=== PATIENT | female | born 1960 | race Caucasian/White ===

== ENCOUNTER 2016-12-24 11:45 | Emergency (ER) | payer OTHER ==
[~2016-12-24] VITALS: Wt 80.0 kg
[~2016-12-24 11:45] MED LIST: DARU800T PO; NORV100 PO; TRUV PO
[2016-12-24] MEDS ORDERED: ALBUTEROL 0.5% (NEB) 2.5 MG/0.5 ML AMP INH STA (13:56)
[2016-12-24] MEDS ORDERED: IPRATROPIUM (NEB) 0.5 MG/2.5 ML AMP INH STA (13:56)
[2016-12-24] MEDS ORDERED: predniSONE 20 MG TAB PO STA (13:56)
--- NOTE | 2016-12-24 14:05 | ERD ---
ER Documentation Chief Complaint Date/Time DATE: 12/24/16 TIME: 14:03 Chief Complaint COUGH AND CONGESTION FOR THE PAST FEW DAYS. NO FEVERS. HPI This a 56-year-old female who presents the emergency department today complaining of sore throat, left earache, cough and congestion for the past 3 days. Patient states she has a history of HIV and asthma. States she is her asthma medications last night but it is not helping her. Denies any fevers or chills, nausea vomiting or diarrhea. ROS All systems reviewed and are negative except as per history of present illness. Medications Home Meds Active Scripts Guaifenesin-Dextromethorphan* (Robitussin* DM) 100MG/10MG/5ML Syrup, 10 ML PO Q4H Y for COUGH for 5 Days, ML Prov:PAYAM VALDEZ PA-C 12/24/16 Fluticasone Propionate (Flonase Allergy Relief) 9.9 Ml Willis.susp, 1 SPRAY NASAL DAILY, #1 BOTTLE TO EACH NOSTRIL Prov:PAYAM VALDEZ PA-C 12/24/16 Cetirizine Hcl* (Zyrtec*) 10 Mg Capsule, 10 MG PO DAILY, #14 TAB.CHEW Prov:PAYAM VALDEZ PA-C 12/24/16 Azithromycin* (Zithromax*) 250 Mg Tablet, 250 MG PO .ZPACK DIRECTED, #6 TAB TAKE 500 MG (2 TABS) THE FIRST DAY THEN 250 MG (1 TAB) DAYS 2-5 Prov:PAYAM VALDEZ PA-C 12/24/16 Reported Medications Emtricitabine-Tenofovir* (Truvada*) 1 Tab Tab, 1 TAB PO DAILY, TAB 12/03/13 Ritonavir* (Norvir*) 100 Mg Capsule, 100 MG PO DAILY 12/03/13 Darunavir* (Prezista*) 800 Mg Tablet, 800 MG PO DAILY 12/03/13 Allergies Allergies: Coded Allergies: Penicillins (Verified Allergy, Unknown, 12/02/13) PMhx/Soc History of Surgery: Yes (C section, appendectomy) Anesthesia Reaction: No Hx Neurological Disorder: No Hx Respiratory Disorders: No Hx Cardiac Disorders: No Hx Psychiatric Problems: No Hx Miscellaneous Medical Probl: Yes (HIV, hep C,chronic ear infection,seizure, CTS) Hx Alcohol Use: No Hx Substance Use: No Hx Tobacco Use: No Smoking Status: Never smoker Physical Exam Vitals Vital Signs Date Time Temp Pulse Resp B/P Pulse Ox O2 Delivery O2 Flow Rate FiO2 12/24/16 14:17 94 21 12/24/16 11:48 98.6 95 20 140/84 97 Physical Exam Const: No acute distress Head: Atraumatic Eyes: Normal Conjunctiva ENT: Ears TMs normal. Nose mild drainage. Throat no erythema no exudate. Neck: Full range of motion..~ No meningismus. Resp: Diffuse rhonchi bilaterally in all lung pickard Cardio: Regular rate and rhythm, no murmurs Abd: Soft, non tender, non distended. Normal bowel sounds Skin: No petechiae or rashes Back: No midline or flank tenderness Ext: No cyanosis, or edema Neur: Awake and alert Psych: Normal Mood and Affect Results 24 hrs Current Medications Medications (Trade) Dose Ordered Sig/Tori Route PRN Reason Start Time Stop Time Status Last Admin Dose Admin Albuterol (Proventil 0.5% (Neb)) 5 mg ONCE STAT INH 12/24/16 13:56 12/24/16 14:01 DC 12/24/16 14:08 Ipratropium [place] (Atrovent 0.02% (Neb)) 1 mg ONCE STAT INH 12/24/16 13:56 12/24/16 14:01 DC 12/24/16 14:07 Prednisone (Prednisone) 60 mg ONCE STAT PO 12/24/16 13:56 12/24/16 14:01 DC 12/24/16 14:03 DIAGNOSTIC IMAGING REPORT Patient: JOSEFINA MOORE : 1960 Age: 56 Sex: F MR #: [id number] DOS: 12/24/16 1356 Ordering MD: PAYAM VALDEZ PA-C Location: [facility] Room/Bed: PROCEDURE: Chest x-ray CLINICAL INDICATION: Asthma. TECHNIQUE: One-view frontal. COMPARISON: 12/02/2013 FINDINGS: The cardiac silhouette is normal. No infiltrates are noted. No hilar abnormalities are identified. No pneumothorax or pleural effusions are visualized. Mild aortic calcification/atherosclerosis is noted. IMPRESSION: 1. No active cardiopulmonary changes. RPTAT: HH .Cleve Amezquita MD, Date Time Electronically viewed and signed by .Cleve Amezquita MD, on 12/24/2016 14: 46 .G/ CC: PAYAM VALDEZ PA-C Procedures/MDM This a 56-year-old female who presents the emergency department today complaining of sore throat, earache, cough and congestion for the past several days. Patient is afebrile here in the emergency department. Her oxygen saturation is 97% however on physical exam patient had diffuse rhonchi bilaterally in all lung pickard. Patient was given a 1 hour breathing treatment here in the emergency department as well as prednisone. Symptoms improved. I also obtain a chest x-ray as patient is HIV positive. Chest x-ray is negative. Low suspicion for pneumonia, PE, pleural effusion, abscess, pneumothorax. Patient is immunocompromised and therefore I will give her a prescription for azithromycin to treat possible bronchitis. I will give her prescription for Robitussin and Zyrtec and Flonase. At this time the patient is stable for discharge and outpatient management. Patient should follow up with their PCP in the next 1-2 days. They may return to the emergency department sooner for any persistent or worsening of symptoms. Patient understood and agreed with the plan. Departure Diagnosis: Primary Impression: Cough Condition: Fair PAYAM VALDEZ PA-C Dec 24, 2016 14:05
--- NOTE | 2016-12-24 14:46 | RADRPT ---
PROCEDURE: Chest x-ray CLINICAL INDICATION: Asthma. TECHNIQUE: One-view frontal. COMPARISON: 12/02/2013 FINDINGS: The cardiac silhouette is normal. No infiltrates are noted. No hilar abnormalities are identified. No pneumothorax or pleural effusions are visualized. Mild aortic calcification/atherosclerosis is noted. IMPRESSION: 1. No active cardiopulmonary changes. RPTAT: HH .Cleve Amezquita MD, MD Date Time Electronically viewed and signed by .Cleve Amezquita MD, on 12/24/2016 14:46 .G/
[2016-12-24] MEDS ORDERED: AZIT250T94 PO (15:09)
[2016-12-24] MEDS ORDERED: FLUT9.9S NASAL (15:09)
[2016-12-24] MEDS ORDERED: CETI10CA PO (15:09)
[2016-12-24] MEDS ORDERED: UDROBDM PO (15:10)
[2016-12-24 15:15] VITALS: BP 132/76; PULSE 92; RESP 20; TEMP 98.1
== END 2016-12-24 15:16 | disposition home or self-care (01) ==
LOC: FTE 11:45
DX: R05 Cough (principal); J45.909 Unspecified asthma, uncomplicated
CPT/HCPCS: 71010; 94664; J7512; Z7502; Z7610

== ENCOUNTER 2018-06-06 13:44 | Emergency (ER) | END 2018-06-06 18:34 | disposition home or self-care (01) ==